=== PATIENT | male | born 1970 | race Caucasian/White ===

== ENCOUNTER 2024-03-19 17:28 | Emergency (ER) | payer OTHER, MEDICAID ==
[~2024-03-19] VITALS: Ht 177.8 cm; Wt 70.0 kg
[2024-03-19 17:46] VITALS: TEMP 97
[2024-03-19 17:49] VITALS: BP 154/106; PULSE 93; RESP 16; O2SAT 98
[2024-03-19] MEDS ORDERED: IBUP-1456 PO (20:57)
[2024-03-19] MEDS ORDERED: CYCL-837 PO (20:57)
== END 2024-03-19 21:00 | disposition home or self-care (01) ==
LOC: ER 17:28
DX: S39.012A Strain of muscle, fascia and tendon of lower back, initial encounter (principal); F17.210 Nicotine dependence, cigarettes, uncomplicated; Z79.1 Long term (current) use of non-steroidal anti-inflammatories (NSAID); J45.909 Unspecified asthma, uncomplicated; Z90.49 Acquired absence of other specified parts of digestive tract; Z90.89 Acquired absence of other organs; Z98.890 Other specified postprocedural states; V49.59XA Passenger injured in collision with other motor vehicles in traffic accident, initial encounter; Y93.89 Activity, other specified; Y92.89 Other specified places as the place of occurrence of the external cause; Y99.8 Other external cause status

== ENCOUNTER 2024-08-09 06:00 | Inpatient (IN) | payer MEDICAID, OTHER ==
[2024-08-09] VITALS (7 sets, daily range): BP systolic 116–130; BP diastolic 77–85; PULSE 78–86; RESP 16–20; TEMP 97.9–98.1; O2SAT 95–97
[~2024-08-09] VITALS: Ht 177.8 cm; Wt 72.1 kg
[~2024-08-09 06:00] MED LIST: CYCL-837 PO; IBUP-1456 PO
[2024-08-09] MEDS: SODIUM CHLORIDE 0.9% 1,000 ML IV ONE (06:30)
[2024-08-09] MEDS ORDERED: cloNIDine HCL 0.1 MG TAB PO ONE (06:30)
--- NOTE | 2024-08-09 06:38 | ED.PDOC ---
GI ASSESSMENT HPI Comments 54 Y M, with SHX of open laparotomy, appendectomy, cholecystectomy presents to the ED with CC left sided abdominal pain. Patient states, that he has been experiencing left sided abdominal pain since 1900 on 08/08/24; with associated nausea. Patient describes, the pain as sharp and stabbing; current pain is 9/10. Patient smokes tobacco and denies illicit drug usage or heavy ETOH usage. Patient denies chest pain, SOB, fever, chills, or vomiting and diarrhea. Chief Complaint: Abdominal Pain Time Seen by MD: 06:00 Primary Care Provider: UNKNOWN Reviewed Notes: Nurses Notes, Medications, Allergies Allergies: Coded Allergies: NO KNOWN ALLERGIES (Unverified , 03/19/24) Home Meds Active Scripts Cyclobenzaprine Hcl (Cyclobenzaprine Hcl) 5 Mg Tab, 1 TAB PO QHSP, #14 TAB 0 Refills Prov:MÓNICA MCKEON 03/19/24 Ibuprofen (Ibuprofen) 800 Mg Tab, 1 TAB PO TID PRN, #30 TAB 0 Refills Prov:MÓNICA MCKEON 03/19/24 Information Source: Patient Mode of Arrival: Ambulatory Timing: Days Duration: Since onset Quality: Sharp, Stabbing Vomitus: None Severity: Moderate Recent: None Recent Hx of: None Pain Location: None Modifying Factors: Nothing Associated sign and symptoms: None Past Medical History PAST MEDICAL HISTORY: Asthma Surgical History: Appendectomy, Cholecystectomy, Hernia Repair Family History Family History: Unknown Social History Smoker: Cigarettes, Less Than 1 Pack/Day Alcohol: Occasionally Drugs: Denies Drug Use Lives In: Home Constitutional: denies: chills, diaphoresis, fatigue, fever, malaise, sweats, weakness, others EENTM: denies: blurred vision, double vision, ear bleeding, ear discharge, ear drainage, ear pain, ear ringing, eye pain, eye redness, hearing loss, mouth pain, mouth swelling, nasal discharge, nose bleeding, nose congestion, nose pain, photophobia, tearing, throat pain, throat swelling, voice changes, others Respiratory: denies: cough, hemoptysis, orthopnea, SOB at rest, shortness of breath, SOB with excertion, stridor, wheezing, others Cardiovascular: denies: chest pain, dizzy spells, diaphoresis, Dyspnea on exertion, edema, irregular heart beat, left arm pain, lightheadedness, palpitations, PND, syncope, others Gastrointestinal: reports: abdominal pain (left sided), nausea; denies: abdomen distended, blood streaked bowels, constipated, diarrhea, dysphagia, difficulty swallowing, hematemesis, melena, poor appetite, poor fluid intake, rectal bleeding, rectal pain, vomiting, others Genitourinary: reports: flank pain (left sided); denies: burning, dysuria, frequency, hematuria, incontinence, penile discharge, penile sore, pain, testicle pain, testicle swelling, urgency, others Neurological: denies: dizziness, fainting, headache, left sided numbness, left sided weakness, numbness, paresthesia, pre-existing deficit, right sided numbness, right sided weakness, seizure, speech problems, tingling, tremors, weakness, others Musculoskeletal: denies: back pain, gout, joint pain, joint swelling, muscle pain, muscle stiffness, neck pain, others Integumetry: denies: bruises, change in color, change in hair/nails, dryness, laceration, lesions, lumps, rash, wounds, others Allergic/Immunocompromised: denies: Difficulty Healing, Frequent Infections, Hives, Itching, others Hematologic/Lymphatic: denies: anemia, blood clots, easy bleeding, easy bruising, swollen glands, others Endocrine: denies: excessive hunger, excessive sweating, excessive thirst, excessive urination, flushing, intolerance to cold, intolerance to heat, unexplained weight gain, unexplained weight loss, others Psychiatric: denies: anxiety, bipolar disorder, depression, hopeless, panic disorder, schizophrenia, sleepless, suicidal, others All Other Systems: Reviewed and Negative Physical Exam General Appearance: Moderate Distress, Normal HEENT: Normal ENT Inspection, Pharynx Normal, TMs Normal Neck: Full Range of Motion, Non-Tender, Normal, Normal Inspection Respiratory: Chest Non-Tender, Lungs Clear, No Accessory Muscle Use, No Respiratory Distress, Normal Breath Sounds Cardiovascular: No Edema, No JVD, No Murmur, No Gallop, Normal Peripheral Pulses, Regular Rate/Rhythm Breast Exam: Deferred Gastrointestinal: Diffuse, No Organomegaly, No Pulsatile Mass, Normal Bowel Sounds, Soft Genitalia: Deferred Pelvic: Deferred Rectal: Deferred Extremities: No calf tenderness, Normal capillary refill, Normal inspection, Normal range of motion, Non-tender, No pedal edema Musculoskeletal : Apperance: Normal Neurologic: Alert, commission broker II-XII nml as Tested, No Motor Deficits, Normal Affect, Normal Mood, No Sensory Deficits Cerebellar Function: Normal Reflexes: Normal Skin: Dry, Normal Color, Warm Peripheral Pulses: 3+ Radial (R), 3+ Radial (L) Lymphatic: No Adenopathy Was a procedure done? Was a procedure done?: No GI differential Dx Differential Diagnosis: Constipation, Diverticular disease, Esophagitis, Gastritis/PUD, Gastroenteritis, Electrolyte Imbalance, Food Poisoning, Bacterial, Viral X-Ray, Labs, Meds, VS Vital Signs Date Time Temp Pulse Resp B/P (MAP) Pulse Ox O2 Delivery O2 Flow Rate FiO2 08/09/24 07:45 86 16 149/99 (116) 95 08/09/24 07:45 86 16 149/99 08/09/24 07:45 149/99 08/09/24 07:06 89 18 142/88 08/09/24 07:01 85 12 100 Room Air 08/09/24 06:51 97.7 85 12 162/117 (132) 100 97.7 08/09/24 06:48 162/117 08/09/24 06:15 97.7 95 16 178/112 (134) 96 Lab Test 08/09/24 07:15 08/09/24 06:20 Range/Units White Blood Count 13.6 H 4.4-10.8 10^3/uL Red Blood Count 4.91 4.5-5.90 10^6/uL Hemoglobin 15.4 13.5-17.5 g/dL Hematocrit 46.6 41.0-53.0 % Mean Corpuscular Volume 94.8 80.0-100.0 fL Mean Corpuscular Hemoglobin 31.4 28.0-32.0 pg Mean Corpuscular Hemoglobin Concent 33.1 32.0-36.0 g/dL Red Cell Distribution Width 14.0 11.8-14.3 % Platelet Count 337 140-450 10^3/uL Mean Platelet Volume 7.3 6.9-10.8 fL Neutrophils (%) (Auto) 82.9 H 37.0-80.0 % Lymphocytes (%) (Auto) 10.7 10.0-50.0 % Monocytes (%) (Auto) 4.6 0.0-12.0 % Eosinophils (%) (Auto) 1.6 0.0-7.0 % Basophils (%) (Auto) 0.2 0.0-2.0 % Neutrophils # (Auto) 11.3 H 1.6-8.6 10 ^3/uL Lymphocytes # (Auto) 1.5 0.4-5.4 10 ^3/uL Monocytes # (Auto) 0.6 0-1.3 10 ^3/uL Eosinophils # (Auto) 0.2 0-0.8 10 ^3/uL Basophils # (Auto) 0 0-0.2 10 ^3/uL Nucleated Red Blood Cells 0.1 % Sodium Level Pending Potassium Level Pending Chloride Level Pending Carbon Dioxide Level Pending Anion Gap Pending Blood Urea Nitrogen Pending Creatinine Pending Glomerular Filtration Rate Calc Pending BUN/Creatinine Ratio Pending Serum Glucose Pending Calcium Level Pending Urine Color Pending Urine Clarity Pending Urine pH Pending Urine Specific [place] Pending Urine Protein Pending Urine Ketones Pending Urine Blood Pending Urine Nitrite Pending Urine Bilirubin Pending Urine Urobilinogen Pending Urine Leukocyte Esterase Pending Urine RBC Pending Urine WBC Pending Urine Squamous Epithelial Cells Pending Urine Bacteria Pending Urine Glucose Pending Current Medications Medications (Trade) Dose Ordered Sig/Sharon Route Start Time Stop Time Status Last Admin Clonidine HCl (Catapres Tablet) 0.1 mg ONCE ONCE PO 08/09/24 06:30 08/09/24 06:31 DC 08/09/24 06:48 Acetaminophen/ Hydrocodone Bitart ([place] 5/325MG Tab) 1 tab ONCE ONCE PO 08/09/24 06:30 08/09/24 06:31 DC 08/09/24 06:53 Sodium Chloride 1,000 ml @ 1,000 mls/hr Q1H ONCE IV 08/09/24 06:30 08/09/24 07:29 DC 08/09/24 07:30 Morphine Sulfate 4 mg ONCE ONCE IV 08/09/24 06:30 08/09/24 06:32 DC 08/09/24 07:06 Ondansetron HCl (Zofran) 4 mg ONCE ONCE IV 08/09/24 06:30 08/09/24 06:32 DC 08/09/24 07:07 Patient alert. Complaining of abdominal pain. Vitals stable. Answering questions. Had multiple surgeries in the abdomen. Possible small bowel obstruction. Establish intravenous access. Was given fluids. Was given morphine. Was given Zofran. Blood pressure was elevated. He does not take any medication for his blood pressure. Blood pressure could be due to his pain or he just has high blood pressure. Was given clonidine. Reviewed his previous history. Explained to the patient. Continue cardiac monitoring. CT scan of the abdomen reviewed show a kidney stone with small-bowel obstruction. Surgical consultation. [place] [address] Ph: [phone] DIAGNOSTIC IMAGING Diagnostic Imaging Report : [id number] Signed PATIENT: NADINE MAYA LACCT: [id number] UNIT: [id number] : 1970 LOC: ER ROOM / BED: / AGE / SEX: 54 / M ADM STATUS: REG ER SERVICE [id number] ORDERING PHYSICIAN: DWIGHT PALM MD PROCEDURE(s): ABPL - CT AB PEL WO CON-NO ORAL OR IV REASON: sbo ORDER NUMBER(s): [id number], ACCESSION NUMBER(s): [id number] Exam: CT CT AB PEL WO CON-NO ORAL OR IV History: sbo. History of bowel resection 4 years ago. Comparison Study: None available at time of dictation. Technique: Multidetector spiral CT of the abdomen and pelvis was performed from lung bases to pubic symphysis. Imaging was performed without intravenous contrast. Coronal and sagittal multiplanar reformats were obtained from the axial data set by the technologist. Radiation Dose : 1. Abdomen/Pelvis: CTDIvol 7.93 mGy, DLP 362.5 mGy*cm. Findings: Evaluation of vasculature and solid organs is limited due to lack of intravenous contrast use. Lung Bases: Lung bases are clear. Visualized portions of the heart and pericardium are unremarkable. Liver: The liver is normal in size. No focal lesions. Gallbladder and Biliary Tree: The gallbladder is surgically absent. No intrahepatic or extrahepatic biliary ductal dilatation. Spleen: Unremarkable Pancreas: The pancreas is grossly unremarkable. Adrenal Glands: Unremarkable Kidneys: There is moderate left hydroureteronephrosis to the level of an obstructive 7 mm distal left ureteral calculus. Additional nonobstructing intrarenal calculi in the lower pole of the left kidney measure up to 5 mm. Multiple nonobstructive right renal calculi measuring up to 5 mm in upper pole. GI tract: The stomach is grossly normal in appearance. There are postsurgical changes in the central abdomen from partial bowel resection. There is a focally dilated bowel loop measuring 8.7 cm with abrupt transition to collapsed small bowel loops in the anterior abdomen adjacent to surgical clips. Scattered stool throughout the colon. The appendix is not visualized, however no inflammatory changes in the right lower quadrant to suggest acute appendicitis. Peritoneum/mesentery/retroperitoneum. No evidence of free intraperitoneal air. No ascites. No evidence of suspicious lymphadenopathy. Abdominal Wall: Bilateral fat containing inguinal hernias. Vasculature: The visualized abdominal aorta is normal in size and caliber. Evaluation of abdominal and pelvic vessels is limited due to lack of intravenous contrast. Urinary Bladder: Grossly unremarkable for degree of distention. Pelvic Organs: Unremarkable Musculoskeletal: No aggressive focal bony lesions, acute fractures or dislocation. IMPRESSION: 1. Moderate left hydroureteronephrosis to the level of an obstructive 7 mm distal left ureteral calculus. Additional bilateral nonobstructive intrarenal calculi. 2. Postsurgical changes in the bowel pleural focally dilated loop of bowel, possibly small bowel in the central abdomen with a transition point compatible with focal obstruction. 3. Bilateral fat containing inguinal hernias. ATED BY: YENNY ARAUJO MD DICTATED DATE/TIME: 08/09/24717 SIGNED BY: YENNY ARAUJO MD SIGNED DATE/TIME: 08/09/24717 CC: Time of 1ST Reevaluation: 06:30 Reevaluation 1ST: Unchanged Patient Education/Counseling: Diagnosis, Treatment Family Education/Counseling: No Family Present Additional Information I REVIEWED THE FOLLOWING NOTES FROM PATIENT'S PAST MEDICAL ENCOUNTERS: 04/19/24 DX:LUMBAR STRAIN THE FOLLOWING TEST WERE ORDERED, AND RESULTS WERE REVIEWED BY ME:CBC, BMP, UA, CT ABD PEL I REVIEWED AND AGREED WITH THE FOLLOWING TEST RESULTS READ BY OTHER PROVIDERS: CT ABD PEL I DISCUSSED TREATMENT AND RESULTS WITH MEDICAL PERSONNEL AND: PATIENT Departure 1 Departure Time of Disposition: 07:30 Impression: Primary Impression: Acute abdominal pain Additional Impressions: Kidney stone Small bowel obstruction Disposition: ADMITTED INPATIENT Admit to: Med Surg Condition: Guarded Critical Care Note Critical Care Time?: Yes (45 min-critical care time only) Stability Stability form required: No Heart Score Heart Score: Heart Score Response (Comments) Value History N/A 0 EKG N/A 0 Age N/A 0 Risk Factors N/A 0 Troponin N/A 0 Total 0 I personally scribed for DWIGHT PALM MD ([email or web address]) on 08/09/24 at 06:37. Electronically submitted by Natasha Oreilly ([email or web address]). I personally scribed for DWIGHT PALM MD ([email or web address]) on 08/09/24 at 06:40. Electronically submitted by Natasha Oreilly ([email or web address]). I personally scribed for DWIGHT PALM MD ([email or web address]) on 08/09/24 at 06:45. Electronically submitted by Natasha Oreilly ([email or web address]). I personally scribed for DWIGHT PALM MD ([email or web address]) on 08/09/24 at 06:50. Electronically submitted by Natasha Oreilly ([email or web address]). I personally scribed for DWIGHT PALM MD ([email or web address]) on 08/09/24 at 07:56. Electronically submitted by Natasha Oreilly ([email or web address]). I personally scribed for DWIGHT PALM MD ([email or web address]) on 08/09/24 at 07:57. Electronically submitted by Natasha Oreilly ([email or web address]). DWIGHT PALM MD Aug 09, 2024 06:37
[2024-08-09] MEDS: cloNIDine HCL 0.1 MG TAB PO ONE (06:48)
[2024-08-09] MEDS: HYDROcodone-ACET 5/325MG TAB PO ONE (06:53)
[2024-08-09] MEDS: MORPHINE SULFATE 4 MG/ML SYR/VIAL IV ONE (07:06)
[2024-08-09] MEDS: ONDANSETRON HCL 4 MG/2 ML VIAL IV ONE (07:07)
--- NOTE | 2024-08-09 07:20 | DVH ---
Exam: CT CT AB PEL WO CON-NO ORAL OR IV History: sbo. History of bowel resection 4 years ago. Comparison Study: None available at time of dictation. Technique: Multidetector spiral CT of the abdomen and pelvis was performed from lung bases to pubic s ymphysis. Imaging was performed without intravenous contrast. Coronal and sagittal multiplanar refor mats were obtained from the axial data set by the technologist. Radiation Dose : 1. Abdomen/Pelvis: CTDIvol 7.93 mGy, DLP 362.5 mGy*cm. Findings: Evaluation of vasculature and solid organs is limited due to lack of intravenous contrast use. Lung Bases: Lung bases are clear. Visualized portions of the heart and pericardium are unremarkable. Liver: The liver is normal in size. No focal lesions. Gallbladder and Biliary Tree: The gallbladder is surgically absent. No intrahepatic or extrahepatic biliary ductal dilatation. Spleen: Unremarkable Pancreas: The pancreas is grossly unremarkable. Adrenal Glands: Unremarkable Kidneys: There is moderate left hydroureteronephrosis to the level of an obstructive 7 mm distal left ureteral calculus. Additional nonobstructing intrarenal calculi in the lower pole of the left kidney measure up to 5 mm. Multiple nonobstructive right renal calculi measuring up to 5 mm in upper pole. GI tract: The stomach is grossly normal in appearance. There are postsurgical changes in the central abdomen from partial bowel resection. There is a focally dilated bowel loop measuring 8.7 cm with a brupt transition to collapsed small bowel loops in the anterior abdomen adjacent to surgical clips. S cattered stool throughout the colon. The appendix is not visualized, however no inflammatory changes in the right lower quadrant to suggest acute appendicitis. Peritoneum/mesentery/retroperitoneum. No evidence of free intraperitoneal air. No ascites. No evidenc e of suspicious lymphadenopathy. Abdominal Wall: Bilateral fat containing inguinal hernias. Vasculature: The visualized abdominal aorta is normal in size and caliber. Evaluation of abdominal a nd pelvic vessels is limited due to lack of intravenous contrast. Urinary Bladder: Grossly unremarkable for degree of distention. Pelvic Organs: Unremarkable Musculoskeletal: No aggressive focal bony lesions, acute fractures or dislocation. IMPRESSION: 1. Moderate left hydroureteronephrosis to the level of an obstructive 7 mm distal left ureteral calcu amaury. Additional bilateral nonobstructive intrarenal calculi. 2. Postsurgical changes in the bowel pleural focally dilated loop of bowel, possibly small bowel in t he central abdomen with a transition point compatible with focal obstruction. 3. Bilateral fat containing inguinal hernias.
[2024-08-09 07:22] LABS: Urine Bacteria None Seen /hpf (None Seen)
[2024-08-09 07:43] LABS: Potassium 3.7 mmol/L (3.5-5.1); Sodium 139 mmol/L (136-145)
[2024-08-09 07:44] LABS: Anion Gap 7 (5-15); Calcium 9.9 mg/dL (8.7-10.4); Carbon Dioxide 22 mmol/L (20-31)
[2024-08-09 07:46] LABS: Basophils # (auto) 0 10 ^3/uL (0-0.2); Basophils % (auto) 0.2 % (0.0-2.0); Eosinophils # (auto) 0.2 10 ^3/uL (0-0.8); Eosinophils % (auto) 1.6 % (0.0-7.0); Hematocrit 46.6 % (41.0-53.0); Hemoglobin 15.4 g/dL (13.5-17.5); Lymphocytes # (auto) 1.5 10 ^3/uL (0.4-5.4); Lymphocytes % (auto) 10.7 % (10.0-50.0); Mean Corpuscular Hemoglobin 31.4 pg (28.0-32.0); Mean Corpuscular Hgb Conc. 33.1 g/dL (32.0-36.0); Mean Corpuscular Volume 94.8 fL (80.0-100.0); Monocytes # (auto) 0.6 10 ^3/uL (0-1.3); Monocytes % (auto) 4.6 % (0.0-12.0); Neutrophils # (auto) 11.3 10 ^3/uL (1.6-8.6); Neutrophils % (auto) 82.9 % (37.0-80.0); Nucleated Red Blood Cells % 0.1 %; Platelet Count (auto) 337 10^3/uL (140-450); Red Blood Cells 4.91 10^6/uL (4.5-5.90); White Blood Cell 13.6 10^3/uL (4.4-10.8)
[2024-08-09 07:49] LABS: BUN/Creatinine Ratio 8.4 (10.0-20.0); Blood Urea Nitrogen 13 mg/dL (9-23)
[2024-08-09 08:14] LABS: Urine Blood 2+ /uL (Negative); Urine Clarity Clear (Clear); Urine Color Light-Yellow (Yellow); Urine Protein, UAD TRACE (Negative); Urine Specific Gravity 1.015 (1.001-1.035); Urine Squamous Epithelial Cell FEW /hpf (<5); Urine Urobilinogen Normal (Negative); Urine WBC 5 /hpf (0 - 3); Urine pH 5.5 (5.0-9.0)
[2024-08-09] MEDS: SODIUM CHLORIDE 0.9% 1,000 ML IV SCH (08:45)
--- NOTE | 2024-08-09 08:53 | DVHHP2 ---
History of Present Illness Reason for Visit: Left-sided abdominal pain History of Present Illness Leonel Walker is a 54-year-old male with past medical history of asthma, open laparotomy, appendectomy, cholecystectomy, and hernia repair who presents to the ED with left-sided abdominal pain sharp constant and stabbing in nature 3/10 pain x1 day. Patient reports that he takes an albuterol inhaler as needed for his asthma but no attacks. Patient stated he had a bowel obstruction before and had surgery for that. Patient reports that he had fried chicken and asad slaw last night for dinner. Patient denies any fevers, chills, chest pain, shortness of breath, vomiting, diarrhea, lightheadedness, and dizziness. Pulmonary: Asthma Past Surgical History: Appendectomy, Cholecystectomy, Hernia Repair, Other (Open lap) Smoke: <1 pack per day ALCOHOL: none Drugs: Other (meth) Lives: with Family Domestic Violence: Neg Review of Systems Constitutional: No: Fever, Chills, Sweats, Weakness, Malaise, Other Eyes: No: Pain, Vision change, Conjunctivae inflammation, Eyelid inflammation, Other, Redness ENT: No: Ear pain, Ear discharge, Nose pain, Nose discharge, Nose congestion, Mouth pain, Mouth swelling, Throat pain, Throat swelling, Other Respiratory: No: Cough, Dry, Shortness of breath, SOB with excertion, Wheezing, Hemoptysis, Pleuritic Pain, Sputum, Wheezing, Other Cardiovascular: No: Chest Pain, Palpitations, Orthopnea, Paroxysmal Noc. D yspnea, Edema, Lt Headedness, Other Gastrointestinal: Nausea, Abdominal Pain; No: Vomiting, Diarrhea, Constipation, Melena, Hematochezia, Other Genitourinary: No Dysuria, No Frequency, No Incontinence, No Hematuria, No Retention, No Other Musculoskeletal: No: other, neck pain, shoulder pain, arm pain, back pain, hand pain, leg pain, foot pain Skin: No: Rash, Lesions, Jaundice, Bruising, Other Neurological: No: Weakness, Numbness, Incoordination, Change in speech, Confusion, Seizures, Other Allergies: Coded Allergies: NO KNOWN ALLERGIES (Unverified , 03/19/24) Exam Vital Signs Vital Signs Date Time Temp Pulse Resp B/P (MAP) Pulse Ox O2 Delivery O2 Flow Rate FiO2 08/09/24 07:45 86 16 149/99 (116) 95 08/09/24 07:45 Room Air* 0 21 08/09/24 06:51 97.7 97.7 General Appearance: Alert, Oriented X3, Cooperative, No acute distress HEENT: Atraumatic, PERRLA, EOMI, Mucous membr. moist/pink Respiratory: Clear to auscultation, Normal air movement Cardiovascular: Regular rate, Normal S1, Normal S2, No murmurs, Gallops Abdominal: Normal bowel sounds, Soft, No hepatospenomegaly, No masses Extremities: No clubbing, No cyanosis, No edema, Normal pulses, No tenderness/swelling Skin: No rashes, No breakdown, No significant lesion Neuro: Normal gait, Normal speech, Strength at 5/5 X4 ext, Normal tone, Sensation intact Psych/Mental Status: Mental status NL, Mood NL Labs/Xrays Labs Test 08/09/24 07:15 08/09/24 06:20 Range/Units White Blood Count 13.6 H 4.4-10.8 10^3/uL Red Blood Count 4.91 4.5-5.90 10^6/uL Hemoglobin 15.4 13.5-17.5 g/dL Hematocrit 46.6 41.0-53.0 % Mean Corpuscular Volume 94.8 80.0-100.0 fL Mean Corpuscular Hemoglobin 31.4 28.0-32.0 pg Mean Corpuscular Hemoglobin Concent 33.1 32.0-36.0 g/dL Red Cell Distribution Width 14.0 11.8-14.3 % Platelet Count 337 140-450 10^3/uL Mean Platelet Volume 7.3 6.9-10.8 fL Neutrophils (%) (Auto) 82.9 H 37.0-80.0 % Lymphocytes (%) (Auto) 10.7 10.0-50.0 % Monocytes (%) (Auto) 4.6 0.0-12.0 % Eosinophils (%) (Auto) 1.6 0.0-7.0 % Basophils (%) (Auto) 0.2 0.0-2.0 % Neutrophils # (Auto) 11.3 H 1.6-8.6 10 ^3/uL Lymphocytes # (Auto) 1.5 0.4-5.4 10 ^3/uL Monocytes # (Auto) 0.6 0-1.3 10 ^3/uL Eosinophils # (Auto) 0.2 0-0.8 10 ^3/uL Basophils # (Auto) 0 0-0.2 10 ^3/uL Nucleated Red Blood Cells 0.1 % Urine Color Light-yellow Yellow Urine Clarity Clear Clear Urine pH 5.5 5.0-9.0 Urine Specific [place] 1.015 1.001-1.035 Urine Protein Trace H Negative Urine Ketones Negative Negative Urine Blood 2+ H Negative /uL Urine Nitrite Negative Negative Urine Bilirubin Negative Negative Urine Urobilinogen Normal Negative mg/dL Urine Leukocyte Esterase Trace Negative /uL Urine RBC 39 0 - 3 /hpf Urine WBC 5 0 - 3 /hpf Urine Squamous Epithelial Cells Few <5 /hpf Urine Bacteria None seen None Seen /hpf Urine Glucose Normal Normal mg/dL Exam: CT CT AB PEL WO CON-NO ORAL OR IV History: sbo. History of bowel resection 4 years ago. Comparison Study: None available at time of dictation. Technique: Multidetector spiral CT of the abdomen and pelvis was performed from lung bases to pubic symphysis. Imaging was performed without intravenous contrast. Coronal and sagittal multiplanar reformats were obtained from the axial data set by the technologist. Radiation Dose : 1. Abdomen/Pelvis: CTDIvol 7.93 mGy, DLP 362.5 mGy*cm. Findings: Evaluation of vasculature and solid organs is limited due to lack of intravenous contrast use. Lung Bases: Lung bases are clear. Visualized portions of the heart and pericardium are unremarkable. Liver: The liver is normal in size. No focal lesions. Gallbladder and Biliary Tree: The gallbladder is surgically absent. No intr ahepatic or extrahepatic biliary ductal dilatation. Spleen: Unremarkable Pancreas: The pancreas is grossly unremarkable. Adrenal Glands: Unremarkable Kidneys: There is moderate left hydroureteronephrosis to the level of an obstructive 7 mm distal left ureteral calculus. Additional nonobstructing intrarenal calculi in the lower pole of the left kidney measure up to 5 mm. Mu ltiple nonobstructive right renal calculi measuring up to 5 mm in upper pole. GI tract: The stomach is grossly normal in appearance. There are postsurgical changes in the central abdomen from partial bowel resection. There is a focally dilated bowel loop measuring 8.7 cm with abrupt transition to collapsed small bowel loops in the anterior abdomen adjacent to surgical clips. Scattered stool throughout the colon. The appendix is not visualized, however no inflammatory changes in the right lower quadrant to suggest acute appendicitis. Peritoneum/mesentery/retroperitoneum. No evidence of free intraperitoneal air. No ascites. No evidence of suspicious lymphadenopathy. Abdominal Wall: Bilateral fat containing inguinal hernias. Vasculature: The visualized abdominal aorta is normal in size and caliber. Evaluation of abdominal and pelvic vessels is limited due to lack of intravenous contrast. Urinary Bladder: Grossly unremarkable for degree of distention. Pelvic Organs: Unremarkable Musculoskeletal: No aggressive focal bony lesions, acute fractures or dislocation. IMPRESSION: 1. Moderate left hydroureteronephrosis to the level of an obstructive 7 mm distal left ureteral calculus. Additional bilateral nonobstructive intrarenal calculi. 2. Postsurgical changes in the bowel pleural focally dilated loop of bowel, possibly small bowel in the central abdomen with a transition point compatible with focal obstruction. 3. Bilateral fat containing inguinal hernias. Assessment/Plan Assessment/Plan Assessment/Plan: R/O SBO Leukocytosis 2nd to UTI vs bowel General sx cx IV Abx antiemetics pain mgmt NGT to LIS - ordered by ER CT A/P noted UA labs am labs PT/PTT UDS Chronic Asthma resp txs Moderate left hydroureteronephrosis to the level of an obstructive 7 mm distal left ureteral calculus. Additional bilateral nonobstructive intrarenal calculi. Urology cx flomax IVf Bilateral fat containing inguinal hernias monitor f/u outpatient with PCP Polysubstance abuse Counseled patient on cessation of polysubstance use Discussed plan of care with patient and nurse Admit to med surge No home medications to reconcile Plan discussed with: Patient Date of Service: Aug 09, 2024 Billing Provider: JOHN COLMENARES Common Visit Codes: [id number] INP/OBS CARE (MOD) JOHN COLMENARES Aug 09, 2024 08:53
[2024-08-09 09:13] LABS: Chloride 110 mmol/L (98-107)
[2024-08-09 09:14] LABS: Glucose 116 mg/dL (74-106)
[2024-08-09 10:14] LABS: INR 1.05 (0.9-1.15); Partial Thromboplastin Time 30.5 SEC (24.5-34.5); Prothrombin Time 11.1 sec (9.3-11.8)
[2024-08-09] MEDS: TAMSULOSIN HYDROCHLORIDE 0.4 MG CAP PO ONE (10:15)
[2024-08-09] MEDS: ONDANSETRON HCL 4 MG/2 ML VIAL IV PRN (10:16)
[2024-08-09] MEDS: metroNIDAZOLE 500MG/100ML 100 ML IV ONE (10:17)
[2024-08-09] MEDS: MORPHINE SULFATE INJ 2 MG/ml SYRG IV PRN (10:17)
[2024-08-09] MEDS: levoFLOXacin 750MG 150 ML IV SCH (11:11)
[2024-08-09] MEDS: hydrALAZINE HCL 20 MG/ML VL IV ONE (11:11)
[2024-08-09 13:52] LABS: Amphetamine Screen, Urine Pos (NEGATIVE); Barbiturate Scree,Urine Neg (NEGATIVE); Benzodiazephine Screen, Urine Neg (NEGATIVE); Cannabinoid Screen, Urine Neg (NEGATIVE); Cocaine Screen, Urine Neg (NEGATIVE); Opiate Scree,Urine Neg (NEGATIVE); Phencyclidine Screen, Urine Neg (NEGATIVE)
[2024-08-09] MEDS ORDERED: ALBUAER3 IN (17:09)
[2024-08-09] MEDS: TAMSULOSIN HYDROCHLORIDE 0.4 MG CAP PO SCH (17:09)
[2024-08-09] MEDS: metroNIDAZOLE 500MG/100ML 100 ML IV SCH (17:09)
[2024-08-09] MEDS: ACETAMINOPHEN 325 MG TAB PO PRN (20:33)
[2024-08-10] VITALS (12 sets, daily range): BP systolic 118–139; BP diastolic 77–87; PULSE 67–86; RESP 16–20; TEMP 97.6–98.1; O2SAT 95–100
[2024-08-10] MEDS: HYDROcodone-ACET 5/325MG TAB PO PRN (08:02)
[2024-08-10 08:58] LABS: Basophils # (auto) 0 10 ^3/uL (0-0.2); Basophils % (auto) 0.4 % (0.0-2.0); Eosinophils # (auto) 0.2 10 ^3/uL (0-0.8); Eosinophils % (auto) 3.8 % (0.0-7.0); Hematocrit 43.4 % (41.0-53.0); Hemoglobin 14.6 g/dL (13.5-17.5); Lymphocytes # (auto) 1.3 10 ^3/uL (0.4-5.4); Lymphocytes % (auto) 21.1 % (10.0-50.0); Mean Corpuscular Hemoglobin 31.5 pg (28.0-32.0); Mean Corpuscular Hgb Conc. 33.5 g/dL (32.0-36.0); Mean Corpuscular Volume 93.9 fL (80.0-100.0); Monocytes # (auto) 0.3 10 ^3/uL (0-1.3); Monocytes % (auto) 5.2 % (0.0-12.0); Neutrophils # (auto) 4.4 10 ^3/uL (1.6-8.6); Neutrophils % (auto) 69.5 % (37.0-80.0); Nucleated Red Blood Cells % 0.1 %; Platelet Count (auto) 270 10^3/uL (140-450); Red Blood Cells 4.62 10^6/uL (4.5-5.90); Red Cell Distribution Width 13.9 % (11.8-14.3); White Blood Cell 6.3 10^3/uL (4.4-10.8)
[2024-08-10 09:07] LABS: Alanine Aminotransferase 12 U/L (7-40); Albumin 3.7 g/dL (3.2-4.8); Alkaline Phosphatase 70 U/L (46-116); Anion Gap 8 (5-15); Aspartate Aminotransferase 14 U/L (13-40); BUN/Creatinine Ratio 9.3 (10.0-20.0); Bilirubin, Total 0.5 mg/dL (0.2-1.0); Blood Urea Nitrogen 11 mg/dL (9-23); Calcium 9.1 mg/dL (8.7-10.4); Carbon Dioxide 21 mmol/L (20-31); Glucose 91 mg/dL (74-106); Potassium 4.1 mmol/L (3.5-5.1); Sodium 142 mmol/L (136-145); Total Protein 5.8 g/dL (5.7-8.2)
[2024-08-10 09:11] LABS: Chloride 113 mmol/L (98-107)
--- NOTE | 2024-08-10 17:10 | DVHPN2 ---
Subjective I am assuming the care of the patient from today onwards. Who was under the care of the hospitalist team. 54-year-old male with a known history of chronic asthma, previous history of laparotomy presented to the hospital with the abdominal pain sharp and stabbing in nature found to have suspected small bowel obstruction as well as left hydronephrosis with a left ureteric stone. Patient did not pass the stone which I saw at bedside. Patient is currently denies any dysuria hematuria on nausea and vomiting. Reviewed: Care Plan Changes from previous H/P or p: No Changes Eyes: No Pain, No Vision change, No Conjunctivae inflammation, No Eyelid inflammation, No Other, No Redness ENT: No Ear pain, No Ear discharge, No Nose pain, No Nose discharge, No Nose congestion, No Mouth pain, No Mouth swelling, No Throat pain, No Throat swelling, No Other Cardiovascular: No Chest Pain, No Palpitations, No Orthopnea, No Paroxysmal Noc. Dyspnea, No Edema, No Lt Headedness, No Other Respiratory: No Cough, No Dry, No Shortness of breath, No SOB with excertion, No Wheezing, No Hemoptysis, No Pleuritic Pain, No Sputum, No Other Gastrointestinal: Nausea; No Vomiting; Abdominal Pain; No Diarrhea, No Constipation, No Melena, No Hematochezia, No Other Genitourinary: No Dysuria, No Frequency, No Incontinence, No Hematuria, No Retention, No Other Musculoskeletal: No other, No neck pain, No shoulder pain, No arm pain, No back pain, No hand pain, No leg pain, No foot pain Skin: No Rash, No Lesions, No Jaundice, No Bruising, No Other Objective Vitals Vital Signs Date Time Temp Pulse Resp B/P (MAP) Pulse Ox O2 Delivery O2 Flow Rate FiO2 08/10/24 17:00 98.0 71 17 133/85 (101) 99 98.0 08/10/24 10:00 Room Air 0.0 08/10/24 10:00 21 Intake/Output Intake and Output 08/10/24 07:00 Intake Total 2550 ml Balance 2550 ml Intake IV Total 2550 ml Exam HEENT pupils are reactive Neck is supple CVS S1-S2 regular rate and rhythm Respiratory diminished breath sounds bases GI positive bowel sound Extremity no edema [employer] no motor deficit Medications Current Medications Medications Dose Ordered Sig/Sharon Route Start Time Stop Time Status Last Admin Dose Admin Sodium Chloride 1,000 ml @ 100 mls/hr Q10H IV 08/09/24 08:45 08/10/24 13:23 100 MLS/HR Acetaminophen/ Hydrocodone Bitart 1 tab Q4HP PRN PO 08/09/24 08:45 08/10/24 14:14 1 TAB Ondansetron HCl 4 mg Q4HP PRN IV 08/09/24 08:45 08/09/24 10:16 4 MG Acetaminophen 650 mg Q6HP PRN PO 08/09/24 08:45 08/09/24 20:33 650 MG Morphine Sulfate 2 mg Q4HPRN PRN IV 08/09/24 08:45 08/09/24 17:08 2 MG Albuterol 2.5 mg Q4HPRN PRN NEB 08/09/24 08:45 Ipratropium [place] 0.5 mg Q4HPRN PRN NEB 08/09/24 08:45 Metronidazole 100 ml @ 100 mls/hr Q8H IV 08/09/24 18:00 08/10/24 16:58 100 MLS/HR Levofloxacin/ Dextrose 150 ml @ 100 mls/hr DAILY IV 08/09/24 10:00 08/10/24 09:26 100 MLS/HR Tamsulosin HCl 0.4 mg QPM PO 08/09/24 18:00 08/10/24 16:58 0.4 MG Laboratory Results Laboratory Tests 08/10/24 07:30 Chemistry Test 08/10/24 07:30 Albumin 3.7 g/dL (3.2-4.8) Calcium Level 9.1 mg/dL (8.7-10.4) Total Protein 5.8 g/dL (5.7-8.2) LFT Test 08/10/24 07:30 Alanine Aminotransferase (ALT) 12 U/L (7-40) Alkaline Phosphatase 70 U/L (46-116) Aspartate Amino Transferase (AST) 14 U/L (13-40) Total Bilirubin 0.5 mg/dL (0.2-1.0) Urinalysis Test 08/09/24 06:20 Urine Color Light-yellow (Yellow) Urine Clarity Clear (Clear) Urine pH 5.5 (5.0-9.0) Urine Specific [place] 1.015 (1.001-1.035) Urine Protein Trace (Negative) H Urine Ketones Negative (Negative) Urine Blood 2+ /uL (Negative) H Urine Nitrite Negative (Negative) Urine Bilirubin Negative (Negative) Urine Urobilinogen Normal mg/dL (Negative) Urine Leukocyte Esterase Trace /uL (Negative) Urine RBC 39 /hpf (0 - 3) Urine WBC 5 /hpf (0 - 3) Urine Squamous Epithelial Cells Few /hpf (<5) Urine Bacteria None seen /hpf (None Seen) Urine Glucose Normal mg/dL (Normal) Assessment/Plan Assessment/Plan 54-year-old male with a known history of chronic asthma, previous history of abdominal surgery with a laparotomy, appendectomy cholecystectomy and hernia repair initially admitted to the hospital with left-sided abdominal pain found to have 1. Abdominal pain rule out small-bowel obstruction 2. Left ureteric stone with hydronephrosis, patient has passed the stone currently denies any left flank pain 3. Acute microscopic hematuria without any evidence of urinary tract infection 4. Acute kidney injury suspected secondary to vasomotor nephropathy 5. Mild leukocytosis 6. Chronic asthma -continue NPO Surgical consultation, Urology consultation all the patient already passed the stone. -discharge plan. Plan discussed with: Patient Date of Service: Aug 10, 2024 Billing Provider: VERENA WHITFIELD MD Common Visit Codes: [id number] INP/OBS CARE(MOD) VERENA WHITFIELD MD Aug 10, 2024 17:10
[2024-08-10] MEDS: ALBUTEROL SULF 2.5 MG/0.5ML(0.5%) NEB SOLN NEB PRN (18:34)
[2024-08-10] MEDS: IPRATROPIUM BROM 0.5 MG/2.5ML INH SOL NEB PRN (18:35)
[2024-08-11] VITALS (7 sets, daily range): BP systolic 110–140; BP diastolic 65–91; PULSE 58–79; RESP 16–20; TEMP 97.6–98.4; O2SAT 94–100
--- NOTE | 2024-08-11 09:41 | DVHINCON2 ---
Date of service: Aug 11, 2024 Referring Physician Hospitalist Reason for Consultation obstructing stone History of Present Illness History Source: Patient, RN Notes, Notes HPI 54 Y M, with SHX of open laparotomy, appendectomy, cholecystectomy presents to the ED with CC left sided abdominal pain. Patient states, that he has been experiencing left sided abdominal pain since 1900 on 08/08/24; with associated nausea. Patient describes, the pain as sharp and stabbing; current pain is 9/10. Patient smokes tobacco and denies illicit drug usage or heavy ETOH usage. Patient denies chest pain, SOB, fever, chills, or vomiting and diarrhea. Urine toxicology is positive for amphetamines. CT showed Home Meds Reported Medications Albuterol Sulfate (VENTOLIN MDI) 90 Mcg Ih, 90 MCG IN, INH 08/09/24 Past Medical History Patient Family History: Patient reports no known family medical history. Review of Systems Comments pt is sleeping H&P Exam Vital Signs Vital Signs Date Time Temp Pulse Resp B/P (MAP) Pulse Ox O2 Delivery O2 Flow Rate FiO2 08/11/24 05:00 98.4 58 20 110/65 (80) 98 98.4 08/10/24 20:00 Room Air* 0 21 Labs/Xrays [place] [address] Ph: [phone] DIAGNOSTIC IMAGING Diagnostic Imaging Report : [id number] Signed PATIENT: NADINE MAYA LACCT: [id number] UNIT: [id number] : 1970 LOC: [facility] ROOM / BED: [address] [place] [address] AGE / SEX: 54 / M ADM STATUS: ADM IN SERVICE 0929 ORDERING PHYSICIAN: JIGNA HERNÁNDEZ NP PROCEDURE(s): KIDUS - KIDNEY REASON: hydronephrosis, check ureteral jets ORDER NUMBER(s): [id number], ACCESSION NUMBER(s): [id number] INDICATION: hydronephrosis, check ureteral jets TECHNIQUE: Multiple real-time sonographic images of the kidneys and bladder were obtained. COMPARISON: None FINDINGS: RIGHT kidney measures 10.8 cm in length. No hydronephrosis. LEFT kidney measures 12.1 cm in length. Moderate hydronephrosis. Bilateral nonobstructing renal stones are present. No large intraluminal masses are seen in the bladder. Suggestion of a stone at the left UVJ. IMPRESSION: Moderate left hydronephrosis. Suggestion of a stone at the left UVJ. Clinical correlation advised. Bilateral nonobstructing renal stones. ATED BY: ROCKY DONOVAN MD DICTATED DATE/TIME: 08/11/241116 SIGNED BY: ROCKY DONOVAN MD SIGNED DATE/TIME: 08/11/24 111 CC: [place] [address] Ph: [phone] DIAGNOSTIC IMAGING Diagnostic Imaging Report : [id number] Signed PATIENT: NADINE MAYA LACCT: [id number] UNIT: [id number] : 1970 LOC: ER ROOM / BED: / AGE / SEX: 54 / M ADM STATUS: REG ER SERVICE 2 ORDERING PHYSICIAN: DWIGHT PALM MD PROCEDURE(s): ABPL - CT AB PEL WO CON-NO ORAL OR IV REASON: sbo ORDER NUMBER(s): [id number], ACCESSION NUMBER(s): [id number] Exam: CT CT AB PEL WO CON-NO ORAL OR IV History: sbo. History of bowel resection 4 years ago. Comparison Study: None available at time of dictation. Technique: Multidetector spiral CT of the abdomen and pelvis was performed from lung bases to pubic symphysis. Imaging was performed without intravenous contrast. Coronal and sagittal multiplanar reformats were obtained from the axial data set by the technologist. Radiation Dose : 1. Abdomen/Pelvis: CTDIvol 7.93 mGy, DLP 362.5 mGy*cm. Findings: Evaluation of vasculature and solid organs is limited due to lack of intravenous contrast use. Lung Bases: Lung bases are clear. Visualized portions of the heart and pericardium are unremarkable. Liver: The liver is normal in size. No focal lesions. Gallbladder and Biliary Tree: The gallbladder is surgically absent. No intrahepatic or extrahepatic biliary ductal dilatation. Spleen: Unremarkable Pancreas: The pancreas is grossly unremarkable. Adrenal Glands: Unremarkable Kidneys: There is moderate left hydroureteronephrosis to the level of an obstructive 7 mm distal left ureteral calculus. Additional nonobstructing intrarenal calculi in the lower pole of the left kidney measure up to 5 mm. Multiple nonobstructive right renal calculi measuring up to 5 mm in upper pole. GI tract: The stomach is grossly normal in appearance. There are postsurgical changes in the central abdomen from partial bowel resection. There is a focally dilated bowel loop measuring 8.7 cm with abrupt transition to collapsed small bowel loops in the anterior abdomen adjacent to surgical clips. Scattered stool throughout the colon. The appendix is not visualized, however no inflammatory changes in the right lower quadrant to suggest acute appendicitis. Peritoneum/mesentery/retroperitoneum. No evidence of free intraperitoneal air. No ascites. No evidence of suspicious lymphadenopathy. Abdominal Wall: Bilateral fat containing inguinal hernias. Vasculature: The visualized abdominal aorta is normal in size and caliber. Evaluation of abdominal and pelvic vessels is limited due to lack of intravenous contrast. Urinary Bladder: Grossly unremarkable for degree of distention. Pelvic Organs: Unremarkable Musculoskeletal: No aggressive focal bony lesions, acute fractures or dislocation. IMPRESSION: 1. Moderate left hydroureteronephrosis to the level of an obstructive 7 mm distal left ureteral calculus. Additional bilateral nonobstructive intrarenal calculi. 2. Postsurgical changes in the bowel pleural focally dilated loop of bowel, possibly small bowel in the central abdomen with a transition point compatible w ith focal obstruction. 3. Bilateral fat containing inguinal hernias. ATED BY: YENNY ARAUJO MD DICTATED DATE/TIME: 08/09/24717 SIGNED BY: YENNY ARAUJO MD SIGNED DATE/TIME: 08/09/24717 CC: Labs Test 08/10/24 07:30 08/09/24 07:15 08/09/24 06:20 Range/Units White Blood Count 6.3 # 4.4-10.8 10^3/uL Red Blood Count 4.62 4.5-5.90 10^6/uL Hemoglobin 14.6 13.5-17.5 g/dL Hematocrit 43.4 41.0-53.0 % Mean Corpuscular Volume 93.9 80.0-100.0 fL Mean Corpuscular Hemoglobin 31.5 28.0-32.0 pg Mean Corpuscular Hemoglobin Concent 33.5 32.0-36.0 g/dL Red Cell Distribution Width 13.9 11.8-14.3 % Platelet Count 270 140-450 10^3/uL Mean Platelet Volume 7.7 6.9-10.8 fL Neutrophils (%) (Auto) 69.5 37.0-80.0 % Lymphocytes (%) (Auto) 21.1 10.0-50.0 % Monocytes (%) (Auto) 5.2 0.0-12.0 % Eosinophils (%) (Auto) 3.8 0.0-7.0 % Basophils (%) (Auto) 0.4 0.0-2.0 % Neutrophils # (Auto) 4.4 1.6-8.6 10 ^3/uL Lymphocytes # (Auto) 1.3 0.4-5.4 10 ^3/uL Monocytes # (Auto) 0.3 0-1.3 10 ^3/uL Eosinophils # (Auto) 0.2 0-0.8 10 ^3/uL Basophils # (Auto) 0 0-0.2 10 ^3/uL Nucleated Red Blood Cells 0.1 % Sodium Level 142 136-145 mmol/L Potassium Level 4.1 3.5-5.1 mmol/L Chloride Level 113 H 98-107 mmol/L Carbon Dioxide Level 21 20-31 mmol/L Anion Gap 8 5-15 Blood Urea Nitrogen 11 9-23 mg/dL Creatinine 1.18 0.700-1.30 mg/dL Glomerular Filtration Rate Calc 72 >90 mL/min BUN/Creatinine Ratio 9.3 L 10.0-20.0 Serum Glucose 91 74-106 mg/dL Calcium Level 9.1 8.7-10.4 mg/dL Total Bilirubin 0.5 0.2-1.0 mg/dL Aspartate Amino Transferase (AST) 14 13-40 U/L Alanine Aminotransferase (ALT) 12 7-40 U/L Alkaline Phosphatase 70 46-116 U/L Total Protein 5.8 5.7-8.2 g/dL Albumin 3.7 3.2-4.8 g/dL Prothrombin Time 11.1 9.3-11.8 sec Prothrombin Time INR 1.05 0.9-1.15 Activated Partial Thromboplast Time 30.5 24.5-34.5 SEC Urine Color Light-yellow Yellow Urine Clarity Clear Clear Urine pH 5.5 5.0-9.0 Urine Specific [place] 1.015 1.001-1.035 Urine Protein Trace H Negative Urine Ketones Negative Negative Urine Blood 2+ H Negative /uL Urine Nitrite Negative Negative Urine Bilirubin Negative Negative Urine Urobilinogen Normal Negative mg/dL Urine Leukocyte Esterase Trace Negative /uL Urine RBC 39 0 - 3 /hpf Urine WBC 5 0 - 3 /hpf Urine Squamous Epithelial Cells Few <5 /hpf Urine Bacteria None seen None Seen /hpf Urine Glucose Normal Normal mg/dL Urine Opiates Screen Neg NEGATIVE Urine Fentanyl Screen Neg NEGATIVE Urine Barbiturates Screen Neg NEGATIVE Urine Phencyclidine Screen Neg NEGATIVE Urine Amphetamines Screen Pos NEGATIVE Urine Benzodiazepines Screen Neg NEGATIVE Urine Cocaine Screen Neg NEGATIVE Urine Cannabinoids Screen Neg NEGATIVE Assessment/Plan Problem List: (1) Hydronephrosis with renal and ureteral calculous obstruction (2) Methamphetamine use Plan renal US expulsive measures pain control outpt ESWL TBA if fails trial of passage Plan discussed with: JIGNA Childs NP Aug 11, 2024 09:41
--- NOTE | 2024-08-11 11:19 | DVH ---
INDICATION: hydronephrosis, check ureteral jets TECHNIQUE: Multiple real-time sonographic images of the kidneys and bladder were obtained. COMPARISON: None FINDINGS: RIGHT kidney measures 10.8 cm in length. No hydronephrosis. LEFT kidney measures 12.1 cm in length. Moderate hydronephrosis. Bilateral nonobstructing renal stones are present. No large intraluminal masses are seen in the bladder. Suggestion of a stone at the left UVJ. IMPRESSION: Moderate left hydronephrosis. Suggestion of a stone at the left UVJ. Clinical correlation advised. Bilateral nonobstructing renal stones.
--- NOTE | 2024-08-11 17:10 | DVHDS2 ---
Discharge Summary Date of Admission Aug 09, 2024 at 08:32 Date of Discharge: Aug 11, 2024 Labs/Diagnostic Data: Laboratory Results Test 08/10/24 07:30 08/09/24 07:15 08/09/24 06:20 White Blood Count 6.3 10^3/uL (4.4-10.8) Red Blood Count 4.62 10^6/uL (4.5-5.90) Hemoglobin 14.6 g/dL (13.5-17.5) Hematocrit 43.4 % (41.0-53.0) Mean Corpuscular Volume 93.9 fL (80.0-100.0) Mean Corpuscular Hemoglobin 31.5 pg (28.0-32.0) Mean Corpuscular Hemoglobin Concent 33.5 g/dL (32.0-36.0) Red Cell Distribution Width 13.9 % (11.8-14.3) Platelet Count 270 10^3/uL (140-450) Mean Platelet Volume 7.7 fL (6.9-10.8) Neutrophils (%) (Auto) 69.5 % (37.0-80.0) Lymphocytes (%) (Auto) 21.1 % (10.0-50.0) Monocytes (%) (Auto) 5.2 % (0.0-12.0) Eosinophils (%) (Auto) 3.8 % (0.0-7.0) Basophils (%) (Auto) 0.4 % (0.0-2.0) Neutrophils # (Auto) 4.4 10 ^3/uL (1.6-8.6) Lymphocytes # (Auto) 1.3 10 ^3/uL (0.4-5.4) Monocytes # (Auto) 0.3 10 ^3/uL (0-1.3) Eosinophils # (Auto) 0.2 10 ^3/uL (0-0.8) Basophils # (Auto) 0 10 ^3/uL (0-0.2) Nucleated Red Blood Cells 0.1 % Sodium Level 142 mmol/L (136-145) Potassium Level 4.1 mmol/L (3.5-5.1) Chloride Level 113 mmol/L (98-107) Carbon Dioxide Level 21 mmol/L (20-31) Anion Gap 8 (5-15) Blood Urea Nitrogen 11 mg/dL (9-23) Creatinine 1.18 mg/dL (0.700-1.30) Glomerular Filtration Rate Calc 72 mL/min (>90) BUN/Creatinine Ratio 9.3 (10.0-20.0) Serum Glucose 91 mg/dL (74-106) Calcium Level 9.1 mg/dL (8.7-10.4) Total Bilirubin 0.5 mg/dL (0.2-1.0) Aspartate Amino Transferase (AST) 14 U/L (13-40) Alanine Aminotransferase (ALT) 12 U/L (7-40) Alkaline Phosphatase 70 U/L (46-116) Total Protein 5.8 g/dL (5.7-8.2) Albumin 3.7 g/dL (3.2-4.8) Prothrombin Time 11.1 sec (9.3-11.8) Prothrombin Time INR 1.05 (0.9-1.15) Activated Partial Thromboplast Time 30.5 SEC (24.5-34.5) Urine Color Light-yellow (Yellow) Urine Clarity Clear (Clear) Urine pH 5.5 (5.0-9.0) Urine Specific [place] 1.015 (1.001-1.035) Urine Protein Trace (Negative) Urine Ketones Negative (Negative) Urine Blood 2+ /uL (Negative) Urine Nitrite Negative (Negative) Urine Bilirubin Negative (Negative) Urine Urobilinogen Normal mg/dL (Negative) Urine Leukocyte Esterase Trace /uL (Negative) Urine RBC 39 /hpf (0 - 3) Urine WBC 5 /hpf (0 - 3) Urine Squamous Epithelial Cells Few /hpf (<5) Urine Bacteria None seen /hpf (None Seen) Urine Glucose Normal mg/dL (Normal) Urine Opiates Screen Neg (NEGATIVE) Urine Fentanyl Screen Neg (NEGATIVE) Urine Barbiturates Screen Neg (NEGATIVE) Urine Phencyclidine Screen Neg (NEGATIVE) Urine Amphetamines Screen Pos (NEGATIVE) Urine Benzodiazepines Screen Neg (NEGATIVE) Urine Cocaine Screen Neg (NEGATIVE) Urine Cannabinoids Screen Neg (NEGATIVE) Other Laboratory Tests 08/10/24 07:30 Brief Hx & Hospital Course: 54-year-old male with a known history of chronic asthma, previous history of abdominal surgery with a laparotomy, appendectomy cholecystectomy and hernia repair initially admitted to the hospital with left-sided abdominal pain found to have questionable small bowel obstruction. Patient also left ureteric stone with hydronephrosis. Patient's small-bowel obstruction ruled out. General surgery cleared the patient to be discharged. Patient has a left ureteric stone with hydronephrosis and he passed the stone. Patient's acute kidney injury has been resolved. Patient is being discharged under stable condition. With outpatient follow up with Urology. Condition at Discharge: Stable Final Diagnosis/Problems List 54-year-old male with a known history of chronic asthma, previous history of abdominal surgery with a laparotomy, appendectomy cholecystectomy and hernia repair initially admitted to the hospital with left-sided abdominal pain found to have 1. Abdominal pain smaller epistaxis ruled out, patient is currently tolerating diet. 2. Left ureteric stone with hydronephrosis, patient has passed the stone currently denies any left flank pain 3. Acute microscopic hematuria without any evidence of urinary tract infection 4. Acute kidney injury suspected secondary to vasomotor nephropathy 5. Mild leukocytosis 6. Chronic asthma Discharge Disposition: Home SNF Discharge Will this Physician continue t: No Discharge Instruct/Medications Diet: Cardiac 2g Na,low cholest Diet comment: Advanced diet as tolerated Activity: No Restrictions, As Tolerated Follow Up/Referral: Please follow up with the PCP and Urology as an outpatient in 1-2 weeks Follow up with the General surgery if indicated. Medications: Resume Home medication Discharge Statement: "Patient was advised to return to the ER or call 911 if any headaches, dizziness, shortness of breath, chest pain, abdominal pain, bleeding, fevers, or worsening of medical condition. Patient was counseled about treatment plan, medications, possible side effects, patientverbalized understanding. All questions were answered to the best of my ability. This discharge took greater then 30 minutes in planning, reviewing documentation, counseling the patient, and discussing with other team members." ASSESSMENT ASSESSMENT Assessment 54-year-old male with a known history of chronic asthma, previous history of abdominal surgery with a laparotomy, appendectomy cholecystectomy and hernia repair initially admitted to the hospital with left-sided abdominal pain found to have 1. Abdominal pain smaller epistaxis ruled out, patient is currently tolerating diet. 2. Left ureteric stone with hydronephrosis, patient has passed the stone currently denies any left flank pain 3. Acute microscopic hematuria without any evidence of urinary tract infection 4. Acute kidney injury suspected secondary to vasomotor nephropathy 5. Mild leukocytosis 6. Chronic asthma Date of Service: Aug 11, 2024 Billing Provider: VERENA WHITFIELD MD Common Visit Codes: [id number] DISCH DAY >30min, NOT BILLABLE VERENA WHITFIELD MD Aug 11, 2024 17:10
== END 2024-08-11 18:30 | disposition left against medical advice (07) | DRG 465 ==
LOC: ER 06:00 → OVERFLOW 08:32 → WEST WING 12:47
PROVIDERS: ATTEND Internal Medicine
PROC: 0D9670Z Drainage of Stomach with Drainage Device, Via Natural or Artificial Opening (ICD-10-PCS; principal; 2024-08-09)
DX: N13.2 Hydronephrosis with renal and ureteral calculous obstruction (principal); N17.0 Acute kidney failure with tubular necrosis; Z53.29 Procedure and treatment not carried out because of patient's decision for other reasons; J45.909 Unspecified asthma, uncomplicated; F17.210 Nicotine dependence, cigarettes, uncomplicated; F15.90 Other stimulant use, unspecified, uncomplicated; D72.829 Elevated white blood cell count, unspecified; R31.29 Other microscopic hematuria; Z90.49 Acquired absence of other specified parts of digestive tract; Z79.899 Other long term (current) drug therapy
CPT/HCPCS: 36415; 74176; 76775; 80048; 80053; 80307; 81001; 85025; 85610; 85730; 94640; 96374; 96375; G0378; J1956; J2405; J3490

== ENCOUNTER 2024-08-17 08:29 | Emergency (ER) | payer MEDICAID ==
[~2024-08-17] VITALS: Ht 177.8 cm; Wt 74.8 kg
[~2024-08-17 08:29] MED LIST changes: +ALBUAER3 IN; -CYCL-837 PO; -IBUP-1456 PO
--- NOTE | 2024-08-17 09:29 | ED.PDOC ---
GI ASSESSMENT HPI Comments 54 year old male presents to the ED with a chief complaint of constipation onset 3 days. Patient states he was recently discharged from this ED, was being treated with Morphine and Olin. Patient has not had a bowel movement for the past 3 days. Denies chest pain, shortness of breath, nausea, vomiting, diarrhea, dysuria, hematuria. No other symptoms or modifying factors present at this time. Chief Complaint: Constipation Time Seen by MD: 09:21 Primary Care Provider: UNKNOWN Reviewed Notes: Medications, Allergies Allergies: Coded Allergies: NO KNOWN ALLERGIES (Unverified , 03/19/24) Home Meds Reported Medications Albuterol Sulfate (VENTOLIN MDI) 90 Mcg Ih, 90 MCG IN, INH 08/09/24 Information Source: Patient Mode of Arrival: Ambulatory Timing: Days Prehospital treatment: None Recent Hx of: None Pain Location: None Modifying Factors: Nothing Associated sign and symptoms: Constipation Past Medical History PAST MEDICAL HISTORY: Asthma, Kidney Stones Surgical History: Appendectomy, Cholecystectomy, Hernia Repair Family History Family History: Unknown Social History Smoker: Cigarettes, Less Than 1 Pack/Day Alcohol: Occasionally Drugs: Denies Drug Use Lives In: Home Constitutional: denies: chills, diaphoresis, fatigue, fever, malaise, sweats, weakness, others EENTM: denies: blurred vision, double vision, ear bleeding, ear discharge, ear drainage, ear pain, ear ringing, eye pain, eye redness, hearing loss, mouth pain, mouth swelling, nasal discharge, nose bleeding, nose congestion, nose pain, photophobia, tearing, throat pain, throat swelling, voice changes, others Respiratory: denies: cough, hemoptysis, orthopnea, SOB at rest, shortness of breath, SOB with excertion, stridor, wheezing, others Cardiovascular: denies: chest pain, dizzy spells, diaphoresis, Dyspnea on exertion, edema, irregular heart beat, left arm pain, lightheadedness, palpitations, PND, syncope, others Gastrointestinal: reports: constipated; denies: abdomen distended, abdominal pain, blood streaked bowels, diarrhea, dysphagia, difficulty swallowing, hematemesis, melena, nausea, poor appetite, poor fluid intake, rectal bleeding, rectal pain, vomiting, others Genitourinary: denies: burning, dysuria, flank pain, frequency, hematuria, incontinence, penile discharge, penile sore, pain, testicle pain, testicle swelling, urgency, others Neurological: denies: dizziness, fainting, headache, left sided numbness, left sided weakness, numbness, paresthesia, pre-existing deficit, right sided numbness, right sided weakness, seizure, speech problems, tingling, tremors, weakness, others Musculoskeletal: denies: back pain, gout, joint pain, joint swelling, muscle pain, muscle stiffness, neck pain, others Integumetry: denies: bruises, change in color, change in hair/nails, dryness, laceration, lesions, lumps, rash, wounds, others Allergic/Immunocompromised: denies: Difficulty Healing, Frequent Infections, Hives, Itching, others Hematologic/Lymphatic: denies: anemia, blood clots, easy bleeding, easy bruising, swollen glands, others Endocrine: denies: excessive hunger, excessive sweating, excessive thirst, excessive urination, flushing, intolerance to cold, intolerance to heat, unexplained weight gain, unexplained weight loss, others Psychiatric: denies: anxiety, bipolar disorder, depression, hopeless, panic disorder, schizophrenia, sleepless, suicidal, others All Other Systems: Reviewed and Negative Physical Exam General Appearance: Mild Distress HEENT: Normal ENT Inspection, Pharynx Normal, TMs Normal Neck: Full Range of Motion, Non-Tender, Normal, Normal Inspection Respiratory: Chest Non-Tender, Lungs Clear, No Accessory Muscle Use, No Respiratory Distress, Normal Breath Sounds Cardiovascular: No Edema, No JVD, No Murmur, No Gallop, Normal Peripheral Pulses, Regular Rate/Rhythm Breast Exam: Deferred Gastrointestinal: No Organomegaly, Non Tender, No Pulsatile Mass, Normal Bowel Sounds, Soft Genitalia: Deferred Pelvic: Deferred Rectal: Deferred Extremities: No calf tenderness, Normal capillary refill, Normal inspection, Normal range of motion, Non-tender, No pedal edema Musculoskeletal : Apperance: Normal Neurologic: Alert, 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 Was a procedure done?: No GI differential Dx Differential Diagnosis: Constipation, Diverticular disease, Esophagitis, Gastritis/PUD, Gastroenteritis X-Ray, Labs, Meds, VS Vital Signs Date Time Temp Pulse Resp B/P (MAP) Pulse Ox O2 Delivery O2 Flow Rate FiO2 08/17/24 10:18 16 Room Air* 0 21 08/17/24 10:18 90 16 170/93 (118) 99 08/17/24 08:35 97.8 94 18 175/100 (125) 99 Lab Test 08/17/24 09:13 Range/Units White Blood Count 8.2 4.4-10.8 10^3/uL Red Blood Count 4.75 4.5-5.90 10^6/uL Hemoglobin 15.0 13.5-17.5 g/dL Hematocrit 44.2 41.0-53.0 % Mean Corpuscular Volume 93.2 80.0-100.0 fL Mean Corpuscular Hemoglobin 31.5 28.0-32.0 pg Mean Corpuscular Hemoglobin Concent 33.8 32.0-36.0 g/dL Red Cell Distribution Width 13.7 11.8-14.3 % Platelet Count 371 140-450 10^3/uL Mean Platelet Volume 7.3 6.9-10.8 fL Neutrophils (%) (Auto) 81.1 H 37.0-80.0 % Lymphocytes (%) (Auto) 13.3 10.0-50.0 % Monocytes (%) (Auto) 3.9 0.0-12.0 % Eosinophils (%) (Auto) 1.2 0.0-7.0 % Basophils (%) (Auto) 0.5 0.0-2.0 % Neutrophils # (Auto) 6.6 1.6-8.6 10 ^3/uL Lymphocytes # (Auto) 1.1 0.4-5.4 10 ^3/uL Monocytes # (Auto) 0.3 0-1.3 10 ^3/uL Eosinophils # (Auto) 0.1 0-0.8 10 ^3/uL Basophils # (Auto) 0 0-0.2 10 ^3/uL Nucleated Red Blood Cells 0.0 % Sodium Level 143 136-145 mmol/L Potassium Level 4.2 3.5-5.1 mmol/L Chloride Level 108 H 98-107 mmol/L Carbon Dioxide Level 28 20-31 mmol/L Anion Gap 7 5-15 Blood Urea Nitrogen 21 9-23 mg/dL Creatinine 1.38 H 0.700-1.30 mg/dL Glomerular Filtration Rate Calc 60 >90 mL/min BUN/Creatinine Ratio 15.2 10.0-20.0 Serum Glucose 117 H 74-106 mg/dL Calcium Level 10.4 8.7-10.4 mg/dL Current Medications Medications (Trade) Dose Ordered Sig/Sharon Route Start Time Stop Time Status Last Admin Docusate Sodium (Colace Capsule) 100 mg ONCE ONCE PO 08/17/24 10:00 08/17/24 10:01 DC 08/17/24 10:19 Patient alert. Complaining of constipation. On pain medication. Vitals stable. Answering all questions. Was given Colace. Abdomen is soft nontender. States that he is feeling better. WBC within normal limits. Blood pressure normalized. X-ray reviewed does show constipation. Reviewed his previous visit. Explained to the patient. Was told to follow up with his primary care physician. Was told to come back if there is any problem. Time of 1ST Reevaluation: 09:51 Reevaluation 1ST: Unchanged Time of 2ND Reevaluation: 17:27 Reevaluation 2ND: Improved Patient Education/Counseling: Diagnosis, Treatment, Prognosis Family Education/Counseling: No Family Present Additional Information I reviewed the following notes from patient's past medical encounters: The following tests were ordered, and results were reviewed by me: XY KUB ABDOMEN SINGLE VIEW, CBC, CMP I reviewed and agreed with the following test results read by other providers: XY KUB ABDOMEN SINGLE VIEW I discussed treatment and results with medical personnel and patient Departure 1 Departure Time of Disposition: 17:29 Impression: Primary Impression: Constipation Qualified Codes: K59.01 - Slow transit constipation Disposition: 01 HOME / SELF CARE / HOMELESS Condition: Good Discharged With: Self Critical Care Note Critical Care Time?: No Stability Stability form required: No I personally scribed for DWIGHT PALM MD ([email or web address]) on 08/17/24 at 09:29. Electronically submitted by Heather Clayton ([email or web address]). I personally scribed for DWIGHT PALM MD ([email or web address]) on 08/17/24 at 09:32. Electronically submitted by Heather Clayton ([email or web address]). I personally scribed for DWIGHT PALM MD ([email or web address]) on 08/17/24 at 09:45. Electronically submitted by Heather Clayton ([email or web address]). DWIGHT PALM MD Aug 17, 2024 09:29
--- NOTE | 2024-08-17 09:30 | DVH ---
ABDOMINAL RADIOGRAPH Indication: constipation Technique: Single frontal view of the abdomen was obtained Comparison: None FINDINGS: Lines and tubes: None There is a nonobstructive bowel gas pattern. There stool throughout the colon. No supine radiographic evidence of pneumoperitoneum. Bony structures unremarkable. IMPRESSION: 1. Diffuse stool throughout the colon suggesting constipation.
[2024-08-17 09:43] LABS: Basophils # (auto) 0 10 ^3/uL (0-0.2); Basophils % (auto) 0.5 % (0.0-2.0); Eosinophils # (auto) 0.1 10 ^3/uL (0-0.8); Eosinophils % (auto) 1.2 % (0.0-7.0); Hematocrit 44.2 % (41.0-53.0); Lymphocytes # (auto) 1.1 10 ^3/uL (0.4-5.4); Lymphocytes % (auto) 13.3 % (10.0-50.0); Mean Corpuscular Hemoglobin 31.5 pg (28.0-32.0); Mean Corpuscular Hgb Conc. 33.8 g/dL (32.0-36.0); Mean Corpuscular Volume 93.2 fL (80.0-100.0); Monocytes # (auto) 0.3 10 ^3/uL (0-1.3); Monocytes % (auto) 3.9 % (0.0-12.0); Neutrophils # (auto) 6.6 10 ^3/uL (1.6-8.6); Neutrophils % (auto) 81.1 % (37.0-80.0); Platelet Count (auto) 371 10^3/uL (140-450); Potassium 4.2 mmol/L (3.5-5.1); Red Blood Cells 4.75 10^6/uL (4.5-5.90); Red Cell Distribution Width 13.7 % (11.8-14.3); Sodium 143 mmol/L (136-145); White Blood Cell 8.2 10^3/uL (4.4-10.8)
[2024-08-17 09:44] LABS: Anion Gap 7 (5-15); Carbon Dioxide 28 mmol/L (20-31)
[2024-08-17 09:45] LABS: Calcium 10.4 mg/dL (8.7-10.4)
[2024-08-17 09:49] LABS: BUN/Creatinine Ratio 15.2 (10.0-20.0); Blood Urea Nitrogen 21 mg/dL (9-23)
[2024-08-17 09:50] LABS: Chloride 108 mmol/L (98-107); Glucose 117 mg/dL (74-106)
[2024-08-17 10:18] VITALS: BP 170/93; PULSE 90; RESP 16; O2SAT 99
[2024-08-17] MEDS: DOCUSATE SOD 100 MG CAP PO ONE (10:19)
== END 2024-08-17 10:20 | disposition home or self-care (01) ==
LOC: ER 08:29
DX: K59.00 Constipation, unspecified (principal); J45.909 Unspecified asthma, uncomplicated; F17.210 Nicotine dependence, cigarettes, uncomplicated; Z90.49 Acquired absence of other specified parts of digestive tract; Z98.890 Other specified postprocedural states
CPT/HCPCS: 36415; 74018; 80048; 85025